=== PATIENT | male | born 1985 | race American Indian/Alaskan Native ===

== ENCOUNTER 2018-01-01 18:50 | Emergency (ER) | payer SELFPAY ==
[2018-01-01 19:06] VITALS: BP 138/73
[2018-01-01] MEDS ORDERED: MOTRIN ONE (20:10)
--- NOTE | 2018-01-01 20:43 | Emergency Department Report ---
ED Laceration HPI - HPI Occurred When: Today Location: Upper Extremity (left lateral forearm) Severity: moderate Tetanus Status: Up to Date (November 2017 with DOT physical) Laceration Symptoms: Yes Pain, No Foreign Body Sensation, No Numbness, No Weakness Other History: This is a 32-year-old -[place] male who presents with a laceration to left forearm from power washer today. Patient reports he was at work and a power washer slipped and hit the left lateral side of arm around 1600. There was a moderate amount of bleeding from wound. Patient wrapped wound with a shirt and came in for evaluation. Patient denies cleaning an area with anything. Patient states he was unable to stop bleeding and decided to come here. The last tetanus vaccination was in November of this year with DOT physical. Denies paresthesia, deformity, swelling, nausea or vomiting , loss of consciousness, and chest pain <BAEZVERONICAChelsie - Last Filed: 01/01/18 21:10> <CHELSEY DUMAS - Last Filed: 01/02/18 12:35> - HPI Chief Complaint: Wound/Laceration Stated Complaint: ARM INJURY Time Seen by Provider: 01/01/18 20:07 ED Review of Systems ROS: Stated complaint: ARM INJURY Other details as noted in HPI Constitutional: denies: chills, fever Respiratory: denies: cough, shortness of breath, wheezing Cardiovascular: denies: chest pain, palpitations Gastrointestinal: denies: abdominal pain, nausea, diarrhea Skin: lesions (Laceration to left forearm). denies: rash Neurological: denies: headache, weakness, numbness, paresthesias Psychiatric: denies: anxiety, depression <BAEZVERONICAChelsie - Last Filed: 01/01/18 21:10> ROS: Stated complaint: ARM INJURY Other details as noted in HPI <CHELSEY DUMAS - Last Filed: 01/02/18 12:35> ED Past Medical Hx - Past Medical History Previous Medical History?: No - Surgical History Past Surgical History?: No - Social History Smoking Status: Current Every Day Smoker Substance Use Type: None <VERONICA BAEZChelsie - Last Filed: 01/01/18 21:10> <CHELSEY DUMAS - Last Filed: 01/02/18 12:35> - Medications Home Medications: Home Medications Medication Instructions Recorded Confirmed Last Taken Type Cephalexin [Keflex] 500 mg PO Q8HR #21 cap 01/01/18 Unknown Rx Laceration Physical Exam - Exam General: Vital signs noted. No distress. Alert and acting appropriately. Wound Length (cm): 6 Laceration Location: Upper Extremity (left lateral forearm) Full Body Front + Back: 1 - 3 cm superficial laceration to left lateral forearm, tenderness to palpation, deep portion into muscle towards the end of the wound, no vessel or tendon visualized, no active bleeding, no surrounding cellulitis or erythema 2 - 5 cm abrasion to left laterial forearm below laceration, no active bleeding or surrounding cellulitis Laceration Exam: Yes Normal Distal CMS, No Foreign Body, No Exposed Tendon, Vessel, or Nerve, No Tendon Injury <VERONICA BAEZ - Last Filed: 01/01/18 21:10> - Exam General: Vital signs noted. No distress. Alert and acting appropriately. <CHELSEY DUMAS - Last Filed: 01/02/18 12:35> ED Course Vital Signs 01/01/18 19:04 Temperature 98.7 F Pulse Rate 83 Respiratory 16 Rate Blood Pressure 138/73 O2 Sat by Pulse 97 Oximetry <VERONICA BAEZ - Last Filed: 01/01/18 21:10> Vital Signs 01/01/18 19:04 Temperature 98.7 F Pulse Rate 83 Respiratory 16 Rate Blood Pressure 138/73 O2 Sat by Pulse 97 Oximetry <CHELSEY DUMAS - Last Filed: 01/02/18 12:35> - Laceration /Wound Repair Left Lateral Arm Wound Location: upper extremity (left lateral forearm) Wound Length (cm): 3 Wound's Depth, Shape: superficial, into muscle (into muscle toward the end of), linear Wound Explored: no foreign body removed Irrigated w/ Saline (ccs): 5 Betadine Prep?: Yes Anesthesia: 1% Lidocaine (2% lidocaine without epi) Volume Anesthetic (ccs): 3 Wound Repaired With: sutures Suture Size/Type: 5:0 Number of Sutures: 5 Layer Closure?: No Sterile Dressing Applied?: Yes <VERONICA BAEZ - Last Filed: 01/01/18 21:10> ED Medical Decision Making - Medical Decision Making This is a 32 y.o. male presents with laceration to left lateral forearm from power washer today while at work. Patient examined by me. Vital signs normal. Patient is non-toxic appearing and stable. Laceration closed with 5 sutures, review laceration note. Patient is up-to-date on tetanus vaccination. Discharged home for outpatient treatment with Keflex. Discussed ER care plan with patient to have sutures removed in 7-10 days. Patient agreed with plan. F/ U with PCP. <VERONICA BAEZ - Last Filed: 01/01/18 21:10> - Medical Decision Making I was available for consultations at all times during the patient stay. I did not personally see and was not involved in the care of the patient. <CHELSEY DUMAS - Last Filed: 01/02/18 12:35> Critical care attestation.: If time is entered above; I have spent that time in minutes in the direct care of this critically ill patient, excluding procedure time. <VERONICA BAEZ - Last Filed: 01/01/18 21:10> Critical care attestation.: If time is entered above; I have spent that time in minutes in the direct care of this critically ill patient, excluding procedure time. <CHELSEY DUMAS - Last Filed: 01/02/18 12:35> ED Disposition Is pt being admited?: No Does the pt Need Aspirin: No Time of Disposition: 21:16 <VERONICA BAEZ - Last Filed: 01/01/18 21:10> <CHELSEY DUMAS - Last Filed: 01/02/18 12:35> Disposition: DC-01 TO HOME OR SELFCARE Condition: Stable Instructions: Suture Care (ED), Laceration (ED) Additional Instructions: Take antibiotics as prescribed for the full course. Keep wound dry and clean for 48 hours. Avoid putting to much tension on wound site. Prop arm up on pillows to decrease swelling. Follow up with Primary Care Provider in 2-3 days. Have sutures removed in 7 days by primary care provider or in ER. Return to ER if red, swollen, foul discharge, or fever. Prescriptions: Cephalexin [Keflex] 500 mg PO Q8HR #21 cap Referrals: [facility] [Outside] - 3-5 Days [facility] [Outside] - 3-5 Days [facility] [Outside] - 3-5 Days Print Language: GUATEMALAN
== END 2018-01-01 21:20 | disposition home or self-care (01) ==
LOC: ED 18:50
DX: S51.812A Laceration without foreign body of left forearm, initial encounter (principal); F17.200 Nicotine dependence, unspecified, uncomplicated; W22.8XXA Striking against or struck by other objects, initial encounter; Y93.89 Activity, other specified; Y92.89 Other specified places as the place of occurrence of the external cause; Y99.8 Other external cause status
CPT/HCPCS: 99282

== ENCOUNTER 2018-01-30 19:41 | Emergency (ER) | payer SELFPAY ==
[2018-01-30] MEDS ORDERED: ASPIRIN ONE (21:03)
[2018-01-30] MEDS ORDERED: ASPIRIN PO ONE (21:04)
[2018-01-30 21:20] LABS: Basophils # (Auto) 0.1 K/mm3 (0.0-0.1); Basophils % (Auto) 1.3 % (0.0-1.8); Eosinophils # (Auto) 0.1 K/mm3 (0.0-0.4); Eosinophils % (Auto) 1.6 % (0.0-4.3); Hematocrit 45.5 % (35.5-45.6); Hemoglobin 15.5 gm/dl (11.8-15.2); Lymphocytes # (Auto) 2.7 K/mm3 (1.2-5.4); Lymphocytes % (Auto) 43.4 % (13.4-35.0); Mean Corpuscular HGB Conc 34 % (32-34); Mean Corpuscular Hemoglobin 31 pg (28-32); Mean Corpuscular Volume 91 fl (84-94); Monocytes # (Auto) 0.5 K/mm3 (0.0-0.8); Monocytes % (Auto) 8.6 % (0.0-7.3); Platelet Count 160 K/mm3 (140-440); Red Blood Count 4.98 M/mm3 (3.65-5.03); Red Cell Distribution Width 13.9 % (13.2-15.2)
[2018-01-30 21:37] LABS: BUN/Creatinine Ratio 15; Blood Urea Nitrogen 15 mg/dL (9-20); Calcium 9.2 mg/dL (8.4-10.2); Hemolysis Index 12
[2018-01-31] MEDS ORDERED: TORADOL IM ONE (04:02)
--- NOTE | 2018-01-31 04:07 | Emergency Department Report ---
ED Chest Pain HPI - General Chief Complaint: Chest Pain Stated Complaint: CHEST PAIN Time Seen by Provider: 01/31/18 03:28 Source: patient Mode of arrival: Ambulatory Limitations: No Limitations - History of Present Illness Initial Comments: 32-year-old -[place] male presents to the emergency department with complaint of a one-day history of right-sided chest/chest wall pain. He denies any shortness of breath, fever, nausea, vomiting or back pain or diaphoresis. He has not taken anything for her symptoms prior to presentation. He denies any past medical history. He is a smoker. He does not have any primary care physician. Recent travel or sick. No family history of early cardiac disease or heart attacks. 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 The pain is sharp and worsens with certain movements of his body. Severity scale (0 -10): 7 - Related Data Previous Rx's Medication Instructions Recorded Last Taken Type Cephalexin [Keflex] 500 mg PO Q8HR #21 cap 01/01/18 Unknown Rx Allergies Allergy/AdvReac Type Severity Reaction Status Date / Time No Known Allergies Allergy Unverified 01/01/18 19:06 Heart Score - HEART Score History: Slightly suspicious EKG: Normal Age: < 45 Risk factors: 1-2 risk factors Troponin: < normal limit HEART Score: 1 - Critical Actions Critical Actions: 0-3 pts:0.9-1.7%risk of adverse cardiac event.Candidate for discharge ED Review of Systems ROS: Stated complaint: CHEST PAIN Other details as noted in HPI Comment: All other systems reviewed and negative Constitutional: denies: chills, fever Eyes: denies: eye pain, eye discharge, vision change ENT: denies: ear pain, throat pain Respiratory: denies: cough, shortness of breath, wheezing Cardiovascular: chest pain. denies: palpitations Gastrointestinal: denies: abdominal pain, nausea, diarrhea Genitourinary: denies: urgency, dysuria Musculoskeletal: denies: back pain, joint swelling, arthralgia Skin: denies: rash, lesions Neurological: denies: headache, weakness, paresthesias ED Past Medical Hx - Past Medical History Previous Medical History?: No - Surgical History Past Surgical History?: No - Social History Smoking Status: Current Every Day Smoker Substance Use Type: None - Medications Home Medications: Home Medications Medication Instructions Recorded Confirmed Last Taken Type Cephalexin [Keflex] 500 mg PO Q8HR #21 cap 01/01/18 Unknown Rx ED Physical Exam - General Limitations: No Limitations - Other Other exam information: GENERAL: The patient is well-developed well-nourished. HENT: Normocephalic. Atraumatic. Patient has moist mucous membranes. EYES: Extraocular motions are intact. Pupils equal reactive to light bilaterally. NECK: Supple. Trachea is midline. CHEST/LUNGS: Clear to auscultation. There is no respiratory distress noted. The patient's chest pain is reproducible to palpation of the right chest wall/ pectoral. HEART/CARDIOVASCULAR: Regular. There is no tachycardia. There is no murmur. ABDOMEN: Abdomen is soft, nontender. Patient has normal bowel sounds. There is no abdominal distention. SKIN: Skin is warm and dry. NEURO: The patient is awake, alert, and oriented. The patient is cooperative. The patient has no focal neurologic deficits. The patient has normal speech. MUSCULOSKELETAL: There is no tenderness or deformity. There is no limitation range of motion. There is no evidence of acute injury. ED Course Vital Signs 01/30/18 01/31/18 19:49 02:26 Temperature 98.6 F 98.4 F Pulse Rate 77 60 Respiratory 18 18 Rate Blood Pressure 148/88 122/57 O2 Sat by Pulse 98 100 Oximetry HUMBERTO score - Humberto Score Age > 65: (0) No Aspirin use within the Past 7 Days: (0) No 3 or more CAD Risk Factors: (0) No 2 or more Angina events in past 24 hrs: (0) No Known CAD with more than 50% Stenosis: (0) No Elevated Cardiac Markers: (0) No ST Deviation Greater than 0.5mm: (0) No HUMBERTO Score: 0 ED Medical Decision Making - Lab Data Result diagrams: 01/30/18 21:08 01/30/18 21:08 - EKG Data -: EKG Interpreted by Me EKG shows normal: sinus rhythm (With PVCs), axis, intervals, QRS complexes, ST- T waves Rate: normal - EKG Data When compared to previous EKG there are: previous EKG unavailable Interpretation: normal EKG - Radiology Data Radiology results: image reviewed interpreted by me: Chest x-ray does not show any acute process. There are no pleural effusions, obvious pneumonia and there is no pneumothorax. - Medical Decision Making Patient presents with some right-sided chest/chest wall pain. It is reproducible to palpation. Vital signs stable throughout his ED course. EKG is normal without ST elevation [place], ischemia or dysrhythmia. Chest x-ray does not show any pneumothorax, pleural effusions, pneumonia or any other acute process. Labs have been unremarkable including negative troponins 2. The patient does not have any complaints of shortness of breath. On top of that he is low on the well's criteria and negative on the pulmonary embolism rule out criteria. He was given a dose of Toradol and upon reevaluation he is feeling improved. He will be discharged home to follow up with a primary care physician and has also been given a referral for cardiology. He will return to the ER with any worsening of his symptoms or any acute distress. - Differential Diagnosis costochondritis, GERD, pneumonia, [place], muscle spasm Critical Care Time: No Critical care attestation.: If time is entered above; I have spent that time in minutes in the direct care of this critically ill patient, excluding procedure time. ED Disposition Clinical Impression: Chest wall pain Disposition: DC-01 TO HOME OR SELFCARE Is pt being admited?: No Condition: Stable Instructions: Chest Pain (ED), Costochondritis (ED) Additional Instructions: Please follow up with a primary care physician. I have also given you a referral for a local marionette performer/heart doctor, Dr. Samuel. Return to the emergency Department with any worsening of your symptoms or any acute distress. Referrals: PRIMARY MD SONYA [Primary Care Provider] - 3-5 Days FERDINAND GARCIA MD [Staff Physician] - 3-5 Days IZABEL SAMUEL MD [Staff Physician] - 3-5 Days [facility] [Outside] - 3-5 Days Forms: Work/School Release Form(ED) Time of Disposition: 04:44
--- NOTE | 2018-01-31 04:33 | XRay Report ---
FINAL REPORT EXAM: XR CHEST ROUTINE 2V HISTORY: CP TECHNIQUE: PA and lateral chest radiographs PRIORS: None. FINDINGS: No mediastinal shift. Cardiac silhouette is not enlarged. No pneumothorax, effusion, or focal pulmonary opacity. No acute skeletal finding. IMPRESSION: No focal pulmonary opacity.
[2018-01-31 05:39] VITALS: BP 130/62
== END 2018-01-31 05:00 | disposition home or self-care (01) ==
LOC: ED 19:41
DX: R07.89 Other chest pain (principal); F17.200 Nicotine dependence, unspecified, uncomplicated
CPT/HCPCS: 36415; 71046; 80048; 84484; 85025; 93005; 93010; 96372; 99284; J1885